=== PATIENT | female | born 1990 | race Caucasian/White ===

== ENCOUNTER 2021-03-29 08:56 | Emergency (ER) | payer SELFPAY ==
[~2021-03-29] VITALS: Ht 152.4 cm; Wt 97.7 kg
[~2021-03-29 08:56] MED LIST: NO HOME MEDICATIONS; PRENATAL1 TA7 PO
[2021-03-29 09:02] VITALS: TEMP 97.9
[2021-03-29] MEDS ORDERED: PERCOCET 325 MG1 TA2 PO (11:32)
[2021-03-29] MEDS ORDERED: POLYMYXIN B/TRIMETH OD (11:38)
[2021-03-29 11:45] VITALS: BP 128/75; PULSE 84
== END 2021-03-29 11:45 | disposition home or self-care (01) ==
LOC: COL.ER 08:56
DX: S06.0X0A Concussion without loss of consciousness, initial encounter (principal); S05.01XA Injury of conjunctiva and corneal abrasion without foreign body, right eye, initial encounter; H11.31 Conjunctival hemorrhage, right eye; W22.8XXA Striking against or struck by other objects, initial encounter; Y93.79 Activity, other specified sports and athletics

== ENCOUNTER 2021-12-25 15:57 | Emergency (ER) | payer MEDICAID ==
[~2021-12-25] VITALS: Ht 154.9 cm; Wt 94.5 kg
[~2021-12-25 15:57] MED LIST changes: +PERCOCET 325 MG1 TA2 PO; +POLYMYXIN B/TRIMETH OD
[2021-12-25 16:27] VITALS: BP 120/62; TEMP 98.2
[2021-12-25] MEDS ORDERED: CEPHALEXIN500 M1 PO (16:38)
[2021-12-25 16:45] VITALS: PULSE 101
== END 2021-12-25 16:44 | disposition home or self-care (01) ==
LOC: COL.ER 15:57
DX: L03.116 Cellulitis of left lower limb (principal); Z28.310 Unvaccinated for COVID-19

== ENCOUNTER 2022-07-12 10:24 | Outpatient (CLI) | payer MEDICAID ==
[~2022-07-12] VITALS: Ht 152.4 cm; Wt 95.5 kg
[~2022-07-12 10:24] MED LIST changes: +CEPHALEXIN500 M1 PO
[2022-07-12 10:35] VITALS: BP 96/42; PULSE 103; TEMP 98.1
--- NOTE | 2022-07-12 11:21 | NUR ---
1039 PATIENT HERE FROM OFFICE FOR POSSIBLE SROM. EFM ON FHT 125 BABY VERY ACTIVE.. NO CONTRACTIONS NOTED ON MONITOR OR FELT BY PATIENT. SVE2/50/-3. AMNIOTRACE NEGATIVE AND ROM PLUS SENT TO LAB PER DR ECHAVARRIA ORDER. BABY HARD TO MONITOR DUE TO BEING VERY ACTIVE.
[2022-07-12 11:33] VITALS: BP 98/58; PULSE 78
--- NOTE | 2022-07-12 11:33 | NUR ---
1130 ROM PLUS NEGATIVE. CALLED TO DR ECHAVARRIA WITH ORDERS TO DISMISS TO HOME.
--- NOTE | 2022-07-12 11:48 | NUR ---
6583 ALL DISCHARGE INSTRUCTIONS GIVEN TO PATIENT WITH VERBALUNDERSTANDING NOTED
== END 2022-07-12 11:48 | disposition home or self-care (01) ==
LOC: LDRO 10:24
DX: Z34.93 Encounter for supervision of normal pregnancy, unspecified, third trimester (principal); Z3A.38 38 weeks gestation of pregnancy